=== PATIENT | male | born 1940 | race Hispanic/Latino ===

== ENCOUNTER → 2018-01-29 | Outpatient (CLI) | payer OTHER ==
--- NOTE | 2018-01-29 14:37 | Diagnostic Imaging Report ---
PROCEDURE: CT ABDOMEN AND PELVIS WITHOUT CONTRAST TECHNIQUE: The abdomen and pelvis were scanned utilizing a multidetector helical scanner from the diaphragm to the lesser trochanter without IV contrast. Coronal and sagittal multiplanar reformations were obtained. COMPARISON: None. INDICATIONS: CALCULUS OF THE KIDNEY FINDINGS: ABSENCE OF INTRAVENOUS CONTRAST DECREASES SENSITIVITY FOR DETECTION OF FOCAL LESIONS AND VASCULAR PATHOLOGY. LOWER THORAX: Subpleural scarlike opacities in the lung bases. HEPATOBILIARY: Diffuse hepatic steatosis. Scattered subcentimeter hypodensities in the liver are too small to characterize, but most likely represent cysts. No biliary ductal dilatation. SPLEEN: No splenomegaly. PANCREAS: No focal masses or ductal dilatation. A punctate calcification in the pancreatic tail (series 3, image 55) may represent a parenchymal or vascular calcification. ADRENALS: No adrenal nodules. KIDNEYS/URETERS: No hydronephrosis. Multiple hypodensities in both kidneys measure fluid density and likely represent cysts. A 1.1 cm hypodensity in the left upper pole (series 3, image 58) appears to have faint rim calcifications. 3 mm nonobstructing stone in the right interpolar region (3, image 69). Two 4 mm nonobstructing stone in the right inferior pole (image 75 and 79). 2 mm nonobstructing stone in the interpolar region of the left kidney (series 404, image 59). No ureteral stones. PELVIC ORGANS/BLADDER: The prostate gland is enlarged, measuring 4.7 x 5.8 x 6.0 cm PERITONEUM / RETROPERITONEUM: No free air or fluid. LYMPH NODES: No lymphadenopathy. VESSELS: Mild atherosclerotic calcifications of the aorta and its branches. GI TRACT: No distention or wall thickening. Numerous sigmoid diverticula without evidence of acute inflammation. Small hiatal hernia. BONES AND SOFT TISSUES: Multilevel degenerative changes of the thoracic and lumbar spine. Small, fat-containing umbilical hernia. No bowel involvement. IMPRESSION: Multiple nonobstructing stones the right kidney measuring up to 4 mm. There is a single 2 mm nonobstructing stone in the left kidney. No ureteral stones. Simple and mildly complex cysts in both kidneys. These are incompletely evaluated on this examination. Mild prostatomegaly. Dictated by: Robby Vyas M.D. on 01/29/2018 at 14:41 Electronically approved by: Robby Vyas M.D. on 01/29/2018 at 14:41
== END ==
LOC: CT 13:04
PROVIDERS: ATTEND Urology
DX: N20.0 Calculus of kidney (principal)
CPT/HCPCS: 74176